=== PATIENT | male | born 1945 | race Caucasian/White ===

== ENCOUNTER 2016-12-12 16:26 | Inpatient (IN) | payer MEDICARE, BC ==
[~2016-12-12] VITALS: Ht 167.6 cm; Wt 80.0 kg
[~2016-12-12 16:26] MED LIST: CIPRO DPS500 MG PO; GLUCOPHAGE XR500 MG PO; GLUTOSE 1537.5 GM PO; HUMALOG100 UNIT/1 SQ; LANTUS100 UNITS/ SQ; LIPITOR DPS20 MG PO; MAALOX DPS30 ML PO; MOTRIN-DPS400 MG PO; PEPCID DPS20 MG PO; PREVACID30 MG PO
--- NOTE | 2016-12-15 14:00 | ER ---
ADMIT: 12/12/2016 RM/LOC: 303 [facility] MR#: [id number] [address] [facility] [address] [place], [place] [address] DIPAK MORALES [address] [place] [address] Emergency Room Report SEX: M AGE: 71 : 1945 DATE: 12/12/2016 CHIEF COMPLAINT: Unsteady and pain with urination. HISTORY OF PRESENT ILLNESS: The patient is a 71-year-old gentleman who [facility], presents to the ER with approximately one day of having some burning with urination. He states that today, he has felt unsteady and actually fell to the ground, because he generally felt weak and had trouble getting up because he was unsteady. He denies any pain at this time. He did not hit his head. Did not lose consciousness during the fall. Does report he has had fevers and chills and some nausea. He might have been having a little bit of difficulty concentrating earlier but that seemed to resolve now. REVIEW OF SYSTEMS: Ten-point review of systems is done and otherwise negative except as in HPI. PAST MEDICAL HISTORY: Significant for diabetes, hyperlipidemia, and GERD. PREVIOUS SURGERIES: Cardiac surgery. MEDICATIONS: See nurse's note. ALLERGIES: SEE NURSE'S NOTE. SOCIAL HISTORY: Denies smoking or drug use. Does use alcohol very rarely. PHYSICAL EXAMINATION: See T-sheet for complete physical exam. Chest x-ray shows nothing acute. Lactic acid is elevated at 5.1, procalcitonin elevated at 11.11. White blood cell count 26.9, hemoglobin 10.9, carbon dioxide 21, BUN 25, glucose 186, creatinine 2.2, and CK 719. Urinalysis shows urine is cloudy with positive nitrites and 3+ leuk esterase. White blood cell count in the urine is 87 with bacteria present and urobilinogen of 4.0. EKG shows sinus tachycardia with left bundle-branch block which is not new for him. EMERGENCY DEPARTMENT COURSE: We did sepsis routine on the patient as he was hypotensive with a fever upon arrival. The patient did receive 30 mL/kg fluid resuscitation while in the ER. His blood pressure was improving while down here. Received IV Levaquin. At this point, the patient was not stable to be [facility] the [facility], so I spoke to Dr. Degroot, who will be admitting the ADMIT: 12/12/2016 RM/LOC: 303 [facility] MR#: [id number] [id number] [place], [place] [address] [address], [place] [address] Emergency Room Report SEX: M AGE: 71 : 1945 patient to her service. One hour of critical care time was spent on this patient. The patient is admitted in serious condition. DIAGNOSES: 1. Urinary tract infection. 2. Sepsis. 3. Hypomagnesemia. 4. Anemia. 5. Metabolic acidosis. 6. Elevated CK. Raul Molina MD/ modl JOB #: [id number] CC: Amanda Degroot MD, Attending Physician Amanda Degroot MD, Family Physician
[2016-12-18] MEDS ORDERED: ROCEPHIN DPS2 GM IV (19:34)
[2016-12-18] MEDS ORDERED: TYLENOL DPS325 MG PO (19:34)
[2016-12-18] MEDS ORDERED: LIPITOR DPS20 MG PO (19:34)
[2016-12-18] MEDS ORDERED: GLUCOTROL DPS5 MG PO (19:34)
[2016-12-18] MEDS ORDERED: FEOSOL-DPS325 MG PO (19:34)
[2016-12-18] MEDS ORDERED: NEURONTIN DPS300 MG PO (19:34)
[2016-12-18] MEDS ORDERED: CANASA1000 MG PR (19:35)
[2016-12-18] MEDS ORDERED: ZESTRIL DPS5 MG PO (19:35)
[2016-12-18] MEDS ORDERED: PROCTOZONE-HC 230 GM TP (19:35)
[2016-12-18] MEDS ORDERED: GLUCOPHAGE1000 MG PO (19:35)
[2016-12-18] MEDS ORDERED: ULTRAM DPS50 MG PO (19:36)
[2016-12-18] MEDS ORDERED: PANTOPRAZOLE SO40 MG PO (19:36)
--- NOTE | 2016-12-24 08:22 | DS ---
ADMIT: 12/12/2016 RM/LOC: 303 [facility] MR#: [id number] [address] [place], [place] [address] DIPAK MORALES [address] [place] [address] Discharge Summary SEX: M AGE: 71 : 1945 ADMISSION DATE: 12/12/2016 DISCHARGE DATE: 12/17/2016 DISCHARGE DIAGNOSES: 1. Urosepsis, bacteremia Escherichia coli, which is resistant to Cipro, oral antibiotics. 2. Elevated PSA, enlarged prostate on ultrasound. 3. Anemia. 4. Diabetes. 5. Hypertension. 6. Mild renal insufficiency. HISTORY OF PRESENT ILLNESS: Well documented in his H and P. His laboratory and radiographic assessment is as followed. On admission, his white count was 26,000, hemoglobin 10.9, and platelet count of 150,000. Near discharge white count 10.7. His urine was cloudy, trace blood, positive nitrites. Stool was negative for blood x2. His sodium on admission was 140, potassium 4.7, BUN and creatinine 22 and 1.5. At time of discharge, creatinine was 1.0. His PSA was 87.40, B12 of 404, folic acid 14. Blood cultures showed E. coli resistant microorganisms. C. diff was negative. CT of brain showed normal brain. His chest x-ray was normal. Abdominal x-ray, nonspecific bowel gas pattern. Ultrasound of his kidneys showed prostate enlargement, splenomegaly and normal- appearing kidneys. EKG sinus tach, incomplete left bundle-branch block, poor R-wave progression. Modified barium swallow has evidence of poor mastication, premature spill, thin liquids, mechanical soft diet. Medications pureed. HOSPITAL COURSE: This elderly white gentleman who is a was admitted to [facility] after having a fall and progressive weakness at home. He was brought into the hospital for further evaluation and care. Fluid volume resuscitated. Cultures were obtained. He was covered with broad- spectrum antibiotics. He had a CT of his brain, renal ultrasound as he had renal insufficiency on admission. Stool for C diff. He was started on a diabetic diet as tolerated. Postvoid residuals were performed no evidence of significant postvoid residual. Anemia, Hematest stools was obtained as well as other studies for anemia such as iron, B12, and folic acid. Iron was decreased. PSA was noted to be elevated. Social Work was consulted and ADMIT: 12/12/2016 RM/LOC: 303 [facility] MR#: [id number] [address] [address] [facility] [address], [place] [address] Discharge Summary SEX: M AGE: 71 : 1945 because he had E. coli that was resistant to oral antibiotics. They were readily available. He was subsequently may arrange return to be discharged to the [facility] on IV Rocephin. He was discharged on 12/17 after being assessed with swallowing study. Midline IV was inserted for IV antibiotics. At the [facility], his [facility] were discontinued. DuoNeb respiratory treatments. Chest x-ray, follow up on 12/18/2016. Continue IV Rocephin through the or may follow through the [facility] for elevated PSA. If is unable to make these arrangements through the [facility] Dr. Ortiz. We did send his lab, x-rays, H and P, cultures, speech Vax to the [facility] with the [facility] of the patient. His long- term prognosis is good. He was discharged in stable condition. Tracy Orellana MD/ paco JOB #: [id number] CC: Tracy Orellana MD, Attending Physician Amanda Degroot MD, Family Physician . [facility]
--- NOTE | 2016-12-24 16:38 | HP ---
ADMIT: 12/12/2016 RM/LOC: 303 [facility] MR#: [id number] [address] [facility] [address] [place], [place] [address] DIPAK MORALES [address] [place] [address] History and Physical SEX: M AGE: 71 : 1945 DATE OF SERVICE: CHIEF COMPLAINT: Status post fall. HISTORY OF PRESENT ILLNESS: Mr. Morales is a 71-year-old who presented to the ER today with complaint of fall x2 since morning. The patient is unable to give any details, but per him, he lost his balance and fell down and also reports hitting his head. He is unable to tell whether he lost his consciousness. On arrival to the ER, he was noted to have fever of 101.5 and was hypotensive. He received 2 L bolus and his blood pressure improved. His lactic acid was 5.1. He was noted to have a urinary tract infection and received one dose of levofloxacin. Per his outpatient records, he recently finished course of Augmentin and doxycycline in September. The patient reports loose watery diarrhea and has been constipated since last few days. He also reported fever since last 2 days associated with chills. At present, he complains of burning micturition. PAST MEDICAL HISTORY: 1. Gastroesophageal reflux disease. 2. Diabetes mellitus. 3. Status post cataract surgery. 4. Diabetic neuropathy. 5. Hyperlipidemia. ALLERGIES: TO TERRAMYCIN. SOCIAL HISTORY: The patient is retired. Denies any smoking or recreational drug use. Drinks alcohol occasionally. Lives at home with his and daughter. FAMILY HISTORY: Significant for diabetes and prostate cancer. REVIEW OF SYSTEMS: Ten-point review of systems negative except as mentioned in the HPI. PHYSICAL EXAMINATION: VITAL SIGNS: Current temperature 99.2, heart rate 105, respirations 15, blood pressure 90/39, 95% on room air, and T-max was 101.5. GENERAL: In no acute distress. HEENT: Head, normocephalic and atraumatic. Extraocular movements are intact. Oral mucosa dry. LYMPH: No palpable anterior/posterior cervical or supraclavicular lymphadenopathy. CHEST: Clear to auscultation bilaterally. No wheezes, rales, or rhonchi. CARDIOVASCULAR: S1 and S2 heard. Regular rate and rhythm. Tachycardia. ABDOMEN: Soft, distended, very sluggish, hypoactive bowel sounds. EXTREMITIES: Trace pedal edema in bilateral lower extremities. PSYCH: Normal affect. Memory is slightly impaired. SKIN: No rash noted on exposed skin. ADMIT: 12/12/2016 RM/LOC: 303 [facility] MR#: [id number] [address] [place] [id number] [facility] [address] [place] [address] History and Physical SEX: M AGE: 71 : 1945 DATA REVIEW: His CBC showed white count of 26.9, hemoglobin 10.9, platelets of 150. Lactic acid is 5.1. Chest x-ray showed normal chest. Urinalysis shows 87 wbc's and 3 rbc's. CMP shows creatinine of 2.2 and low magnesium of 1.1. His baseline creatinine last year was 0.88. ASSESSMENT: 1. Sepsis secondary to urinary tract infection. 2. Urinary tract infection. 3. Questionable ileus. 4. Elevated creatine kinase. 5. Acute kidney injury. 6. Status post fall. 7. Anemia. 8. Lactic acidosis. PLAN: We will admit him to PCU. I will continue him on IV fluids and start him on Zosyn 3.375 g every 8 hours. His urine and blood cultures are pending. Given his distended abdomen, I will get an abdominal x-ray to rule out ileus. He also reports loose watery diarrhea and with the recent antibiotic use and high leukocytosis, I will also check a stool for C. difficile PCR. He reports hitting his head after his fall, so we will get a CT head without contrast, to rule out any bleed. Amanda Degroot MD/ paco JOB #: [id number] CC: Amanda Degroot, Attending Physician Amanda Degroot, Family Physician
== END 2016-12-17 11:58 | DRG 872 ==
LOC: ER 16:26 → 3ICU 18:19
PROVIDERS: ADMIT Internal Medicine Infectious Disease
DX: A41.51 Sepsis due to Escherichia coli [E. coli] (principal); N17.9 Acute kidney failure, unspecified; I95.9 Hypotension, unspecified; E87.2 Acidosis; E11.40 Type 2 diabetes mellitus with diabetic neuropathy, unspecified; E83.42 Hypomagnesemia; N39.0 Urinary tract infection, site not specified; E78.5 Hyperlipidemia, unspecified; K21.9 Gastro-esophageal reflux disease without esophagitis; I10 Essential (primary) hypertension; I44.7 Left bundle-branch block, unspecified; D64.9 Anemia, unspecified; K59.00 Constipation, unspecified; Z16.12 Extended spectrum beta lactamase (ESBL) resistance; Z79.84 Long term (current) use of oral hypoglycemic drugs